=== PATIENT | female | born 1955 | race Asian ===

== ENCOUNTER 2019-04-12 17:11 | Emergency (ER) | payer OTHER ==
[~2019-04-12] VITALS: Ht 165.1 cm; Wt 116.6 kg
[2019-04-12 17:11] VITALS: BP 155/100; TEMP 98.2
[2019-04-12 17:41] LABS: PLATELET COUNT 165 K/uL (152-353)
[2019-04-12 17:44] LABS: POTASSIUM 3.9 mmol/L (3.6-5.2)
[2019-04-12] MEDS ORDERED: ALLO100T22 PO (22:32)
[2019-04-12] MEDS ORDERED: CADUET10 MG/10 M PO (22:34)
[2019-04-12] MEDS ORDERED: ASPIRIN 81 LOW81 MG PO (22:36)
[2019-04-12] MEDS ORDERED: BUPROPION HYDR150 M2 PO (22:38)
[2019-04-12] MEDS ORDERED: CARV12.5 PO (22:40)
[2019-04-12] MEDS ORDERED: B-12 COMPL1000 MCG/M IM (22:44)
[2019-04-12] MEDS ORDERED: DIVALPROEX125 M1 PO (22:46)
[2019-04-12] MEDS ORDERED: HYDROCODONE PO ×3 (22:49→22:53)
[2019-04-12] MEDS ORDERED: LAMICTAL25 MG PO (22:56)
[2019-04-12] MEDS ORDERED: MELATONIN1 M1 PO (22:58)
[2019-04-12] MEDS ORDERED: METFORMIN HCL500 M1 PO (23:00)
[2019-04-12] MEDS ORDERED: POTASSIUM PO (23:03)
[2019-04-12] MEDS ORDERED: QUETIAPINE200 MG PO (23:09)
== END 2019-04-12 20:10 | disposition other institution (70) ==
LOC: ED 17:11
PROVIDERS: Family Medicine
DX: R46.89 Other symptoms and signs involving appearance and behavior (principal); I10 Essential (primary) hypertension; Z04.6 Encounter for general psychiatric examination, requested by authority
CPT/HCPCS: 80053; 85027; 93005; 99285